=== PATIENT | female | born 1960 | race Hispanic/Latino ===

== ENCOUNTER → 2021-06-21 | Outpatient (CLI) | payer BC | LOC: MAMMO 08:08 | PROVIDERS: ATTEND Internal Medicine | DX: Z12.31 Encounter for screening mammogram for malignant neoplasm of breast (principal) | CPT/HCPCS: 77067 ==

== ENCOUNTER → 2025-05-24 | Outpatient (REF) | payer MEDICARE, OTHER ==
[~2025-05-24] MED LIST: ACIDOPHILUS1 EAC1 PO; AMLODIPINE BESY10 MG PO; ATORVASTATIN CA40 MG PO; CIPRO500 MG PO; ESIDRIX25 MG PO; LEVEMIR100 UNIT/1 SC; LOSARTAN POTAS100 MG PO; METFORMIN HCL1000 MG PO; METFORMIN HCL500 MG PO; PIOGLITAZONE HC30 MG PO
== END ==
LOC: MAMMO 10:42
PROVIDERS: ATTEND Internal Medicine
DX: Z12.31 Encounter for screening mammogram for malignant neoplasm of breast (principal); M85.88 Other specified disorders of bone density and structure, other site
CPT/HCPCS: 77067; 77080